=== PATIENT | female | born 1940 | race Caucasian/White ===

== ENCOUNTER 2024-03-13 17:30 | Inpatient (IN) | payer MEDICARE ==
[~2024-03-13] VITALS: Ht 165.1 cm; Wt 57.6 kg
[2024-03-13] MEDS ORDERED: MAG HYDROX/AL HYDROX/SIMETH 30 ML UDC PO PRN (22:00)
[2024-03-13] MEDS ORDERED: MAGNESIUM HYDROXIDE 30 ML UDC PO PRN (22:00)
[2024-03-13] MEDS: BLOOD SUGAR DIAGNOSTIC 1 EACH STRIP MC ONE (22:24)
[2024-03-13] MEDS: ZOLPIDEM TARTRATE 5 MG TABLET PO PRN (22:25)
[2024-03-13 22:37] VITALS: BP 142/80; TEMP 97.7; O2SAT 96
[2024-03-14] MEDS ORDERED: METO25TA4 PO (00:01)
[2024-03-14] MEDS ORDERED: BENA40TA8 PO (00:01)
[2024-03-14] MEDS ORDERED: HYDR50TA4 PO (00:01)
[2024-03-14] MEDS ORDERED: PRAV20TA4 PO (00:01)
[2024-03-14] MEDS: METOPROLOL SUCCINATE 25 MG TAB.SR.24H PO SCH (01:19)
[2024-03-14 07:50] LABS: CHOLESTEROL 162 mg/dL (<200); HDL CHOLESTEROL 57 mg/dL (40-60); LDL 84 mg/dL (0-99); TRIGLYCERIDES 70 mg/dL (30-150)
[2024-03-14 08:00] VITALS: BP 162/78; TEMP 98.7; O2SAT 100
[2024-03-14 08:30] LABS: ALBUMIN 3.4 g/dL (3.4-5.0); BILIRUBIN,TOTAL 0.5 mg/dL (0.2-1.0); CALCIUM, SERUM 8.8 mg/dL (8.5-10.1); CREATININE 1.1 mg/dL (0.6-1.3); POTASSIUM 3.6 mmol/L (3.5-5.1); TOTAL PROTEIN, SERUM 7.1 g/dL (6.4-8.2)
[2024-03-14] MEDS: BENAZEPRIL HCL 20 MG TABLET PO SCH (09:15)
[2024-03-14] MEDS: HYDROCHLOROTHIAZIDE 25 MG TABLET PO SCH (09:16)
[2024-03-14] MEDS: LORAZEPAM 0.5 MG TABLET PO PRN (10:45)
[2024-03-14 11:01] LABS: BASOPHILS % (AUTO) 0.6 % (0.0-2.0); EOSINOPHILS # (AUTO) 0.2 K/uL (0.0-0.7); EOSINOPHILS % (AUTO) 3.2 % (0.0-6.0); HEMATOCRIT 31 % (33-45); HEMOGLOBIN 10.4 g/dL (11.5-14.8); LYMPHOCYTES # (AUTO) 1.1 K/uL (0.8-4.8); LYMPHOCYTES % (AUTO) 16.5 % (20.0-44.0); MEAN CORPUSCULAR HEMOGLOBIN 27 PG (26.0-33.0); MEAN CORPUSCULAR HGB CONC 33 g/dl (31.0-36.0); MEAN CORPUSCULAR VOLUME 81 fL (82-100); MONOCYTES # (AUTO) 0.6 K/uL (0.1-1.30); MONOCYTES % (AUTO) 8.9 % (2.0-12.0); NEUTROPHILS # (AUTO) 4.8 K/uL (1.8-8.9); NEUTROPHILS % (AUTO) 70.8 % (43.0-81.0); PLATELET COUNT (AUTO) 313 K/uL (150-450); RED BLOOD CELL COUNT(AUTO) 3.85 MIL/uL (4.0-5.2); RED CELL DISTRIBUTION WIDTH 15.6 % (11.5-15.0); WHITE BLOOD COUNT (AUTO) 6.8 K/uL (4.3-11.0)
[2024-03-14 11:20] LABS: THYROID STIMULATING HORMONE 1.335 uIU/mL (0.358-3.74)
[2024-03-14] MEDS: DIVALPROEX SODIUM 125 MG CAP.SPRINK PO SCH (12:05)
[2024-03-14 16:00] VITALS: BP 115/44; TEMP 97.9; O2SAT 98
[2024-03-14 20:29] VITALS: BP 154/63; TEMP 97.5; O2SAT 99
[2024-03-14] MEDS: QUETIAPINE FUMARATE 25 MG TABLET PO SCH (21:02)
[2024-03-14] MEDS: ATORVASTATIN 10 MG TABLET PO SCH (21:02)
[2024-03-15 08:00] VITALS: BP 132/57; TEMP 98.6; O2SAT 97
[2024-03-15] MEDS: CYANOCOBALAMIN 500 MCG TABLET PO SCH (08:38)
[2024-03-15] MEDS: ACETAMINOPHEN 325 MG TABLET PO PRN (14:35)
[2024-03-15 16:00] VITALS: BP 114/64; TEMP 98.7; O2SAT 98
[2024-03-15 20:00] VITALS: BP 97/79; TEMP 97.9; O2SAT 98
[2024-03-16 08:00] VITALS: BP 110/80; TEMP 98.6; O2SAT 95
[2024-03-16 16:00] VITALS: BP 113/60; TEMP 98; O2SAT 95
[2024-03-16 20:00] VITALS: BP 124/66; TEMP 98.3; O2SAT 100
[2024-03-16] MEDS: QUETIAPINE FUMARATE 25 MG TABLET PO SCH (21:06)
[2024-03-17 08:00] VITALS: BP 109/61; TEMP 97.6; O2SAT 96
[2024-03-17 10:00] VITALS: BP 109/61
[2024-03-17 16:00] VITALS: BP 139/53; TEMP 98.1; O2SAT 99
[2024-03-17 20:00] VITALS: BP 134/74; TEMP 98.1; O2SAT 100
[2024-03-18] MEDS ORDERED: Z GUARD REMEDY 4 OZ OINT TP PRN (04:00)
[2024-03-18] MEDS: Z GUARD REMEDY 4 OZ OINT TP SCH (08:43)
[2024-03-18 09:56] VITALS: BP 136/55; TEMP 98.4; O2SAT 99
[2024-03-18 17:42] VITALS: BP 121/57; TEMP 97.7
[2024-03-18 20:00] VITALS: BP 139/68; TEMP 97.7; O2SAT 98
[2024-03-19 08:00] VITALS: BP 115/69; TEMP 97.9; O2SAT 95
[2024-03-19 16:00] VITALS: BP 124/56; TEMP 98; O2SAT 99
[2024-03-19 20:52] VITALS: BP 145/69; TEMP 98.3; O2SAT 96
[2024-03-20 07:52] LABS: BASOPHILS % (AUTO) 0.8 % (0.0-2.0); EOSINOPHILS # (AUTO) 0.4 K/uL (0.0-0.7); EOSINOPHILS % (AUTO) 7.2 % (0.0-6.0); HEMATOCRIT 31 % (33-45); LYMPHOCYTES # (AUTO) 1.1 K/uL (0.8-4.8); LYMPHOCYTES % (AUTO) 18.2 % (20.0-44.0); MEAN CORPUSCULAR HEMOGLOBIN 26 PG (26.0-33.0); MEAN CORPUSCULAR HGB CONC 33 g/dl (31.0-36.0); MEAN CORPUSCULAR VOLUME 81 fL (82-100); MONOCYTES # (AUTO) 0.7 K/uL (0.1-1.30); MONOCYTES % (AUTO) 12.2 % (2.0-12.0); NEUTROPHILS # (AUTO) 3.6 K/uL (1.8-8.9); NEUTROPHILS % (AUTO) 61.6 % (43.0-81.0); PLATELET COUNT (AUTO) 283 K/uL (150-450); RED CELL DISTRIBUTION WIDTH 15.6 % (11.5-15.0); WHITE BLOOD COUNT (AUTO) 5.9 K/uL (4.3-11.0)
[2024-03-20 08:00] VITALS: BP 129/64; TEMP 98.6; O2SAT 99
[2024-03-20 08:06] LABS: ALBUMIN 3.1 g/dL (3.4-5.0); BILIRUBIN,TOTAL 0.6 mg/dL (0.2-1.0); CREATININE 1.2 mg/dL (0.6-1.3); POTASSIUM 3.9 mmol/L (3.5-5.1)
[2024-03-20] MEDS: DIVALPROEX SODIUM 125 MG CAP.SPRINK PO SCH (09:02)
[2024-03-20 16:00] VITALS: BP 116/59; TEMP 97.8; O2SAT 98
[2024-03-20 20:50] VITALS: BP 120/66; TEMP 97.8; O2SAT 98
[2024-03-21 08:00] VITALS: BP 114/73; TEMP 97.6; O2SAT 94
[2024-03-21 16:10] VITALS: BP 122/55; TEMP 97.6; O2SAT 93
[2024-03-21 21:04] VITALS: BP 108/72; TEMP 98; O2SAT 98
[2024-03-22 08:00] VITALS: BP 100/55; TEMP 98.6; O2SAT 98
[2024-03-22 10:55] LABS: APPEARANCE,URINE CLEAR (CLEAR); BILIRUBIN,URINE NEGATIVE (NEGATIVE); BLOOD, URINE NEGATIVE Ery/uL (NEGATIVE); COLOR,URINE YELLOW (YELLOW); KETONES,URINE NEGATIVE (NEGATIVE); LEUKOCYTE ESTERASE ,URINE NEGATIVE (NEGATIVE); NITRITE, URINE NEGATIVE (NEGATIVE); PH,URINE 6.5 (5.0-8.0); PROTEIN,URINE NEGATIVE (NEGATIVE); UGLUCOSE NEGATIVE (NEGATIVE)
[2024-03-22 12:08] LABS: ADD URINE CULTURE NO; BACTERIA,URINE Rare /HPF (None Seen); RBC,URINE 0-2 /HPF (0-2); SQUAMOUS EPITHELIAL CELL,UR Few /HPF (None Seen)
[2024-03-22 16:00] VITALS: BP 122/58; TEMP 97.9; O2SAT 100
[2024-03-22 20:00] VITALS: BP 97/58; TEMP 98.4; O2SAT 97
[2024-03-23 08:00] VITALS: BP 100/77; TEMP 97.7; O2SAT 100
[2024-03-23 16:00] VITALS: BP 120/58; TEMP 98.1; O2SAT 96
[2024-03-23 20:00] VITALS: BP 140/61; TEMP 98.3; O2SAT 100
[2024-03-23] MEDS: QUETIAPINE FUMARATE 25 MG TABLET PO SCH (22:02)
[2024-03-24 08:00] VITALS: BP 130/58; TEMP 98.6; O2SAT 97
[2024-03-24 08:56] VITALS: BP 141/65
== END 2024-03-24 13:45 | DRG 885 ==
LOC: GPS 21:04
PROVIDERS: ADMIT Psychiatry & Neurology Psychiatry; ATTEND Student in an Organized Health Care Education/Training Program
DX: F39 Unspecified mood [affective] disorder (principal); F03.92 Unspecified dementia, unspecified severity, with psychotic disturbance; F03.94 Unspecified dementia, unspecified severity, with anxiety; F03.93 Unspecified dementia, unspecified severity, with mood disturbance; F29 Unspecified psychosis not due to a substance or known physiological condition; I10 Essential (primary) hypertension; Z79.899 Other long term (current) drug therapy; D63.8 Anemia in other chronic diseases classified elsewhere; E11.9 Type 2 diabetes mellitus without complications; E78.00 Pure hypercholesterolemia, unspecified; E78.5 Hyperlipidemia, unspecified; F41.9 Anxiety disorder, unspecified; Z90.710 Acquired absence of both cervix and uterus; G89.29 Other chronic pain; Z91.83 Wandering in diseases classified elsewhere; Z73.6 Limitation of activities due to disability
CPT/HCPCS: 36415; 70450-TC; 80053-TC; 80061-TC; 80164-TC; 81001; 82140-TC; 82607-TC; 82962-TC; 83921; 84439-TC; 84443-TC; 85025-TC; 87081-TC

== ENCOUNTER 2024-12-14 21:35 | Inpatient (IN) | payer MEDICARE, OTHER ==
[~2024-12-14] VITALS: Ht 167.6 cm; Wt 61.7 kg
[~2024-12-14 21:35] MED LIST: BENA40TA8 PO; HYDR50TA4 PO; METO25TA4 PO; PRAV20TA4 PO
[2024-12-14 22:57] LABS: BASOPHILS % (AUTO) 0.6 % (0.0-2.0); EOSINOPHILS # (AUTO) 0.3 K/uL (0.0-0.7); EOSINOPHILS % (AUTO) 5.2 % (0.0-6.0); HEMATOCRIT 27 % (33-45); HEMOGLOBIN 8.9 g/dL (11.5-14.8); LYMPHOCYTES # (AUTO) 1.3 K/uL (0.8-4.8); MEAN CORPUSCULAR HEMOGLOBIN 27 PG (26.0-33.0); MEAN CORPUSCULAR HGB CONC 33 g/dl (31.0-36.0); MEAN CORPUSCULAR VOLUME 83 fL (82-100); MONOCYTES # (AUTO) 0.5 K/uL (0.1-1.30); MONOCYTES % (AUTO) 7.6 % (2.0-12.0); NEUTROPHILS # (AUTO) 4.4 K/uL (1.8-8.9); NEUTROPHILS % (AUTO) 66.6 % (43.0-81.0); PLATELET COUNT (AUTO) 299 K/uL (150-450); RED BLOOD CELL COUNT(AUTO) 3.29 MIL/uL (4.0-5.2); RED CELL DISTRIBUTION WIDTH 17.5 % (11.5-15.0); WHITE BLOOD COUNT (AUTO) 6.5 K/uL (4.3-11.0)
[2024-12-14 23:04] LABS: CALCIUM, SERUM 8.4 mg/dL (8.5-10.1); POTASSIUM 4.6 mmol/L (3.5-5.1)
[2024-12-14 23:10] LABS: ALBUMIN 3.6 g/dL (3.4-5.0); BILIRUBIN,DIRECT 0.1 mg/dL (0.0-0.2); BILIRUBIN,TOTAL 0.3 mg/dL (0.2-1.0)
[2024-12-14 23:31] LABS: APPEARANCE,URINE SLIGHTLY CLOUDY (CLEAR); BILIRUBIN,URINE NEGATIVE (NEGATIVE); BLOOD, URINE TRACE-INTA Ery/uL (NEGATIVE); COLOR,URINE YELLOW (YELLOW); KETONES,URINE NEGATIVE (NEGATIVE); LEUKOCYTE ESTERASE ,URINE 2+ (NEGATIVE); NITRITE, URINE NEGATIVE (NEGATIVE); PROTEIN,URINE TRACE mg/dl (NEGATIVE); UGLUCOSE NEGATIVE (NEGATIVE); UROBILINOGEN,URINE 0.2 EU/dL (0.2)
[2024-12-14 23:38] LABS: ADD URINE CULTURE YES; BACTERIA,URINE Moderate /HPF (None Seen); RBC,URINE 0-2 /HPF (0-2); SQUAMOUS EPITHELIAL CELL,UR Few /HPF (None Seen); WBC,URINE 51-80 /HPF (0-3)
[2024-12-14] MEDS: IV NS 0.9% 1,000 ML BAG IV ONE (23:39)
[2024-12-15] MEDS ORDERED: Z GUARD REMEDY 4 OZ OINT TP PRN (02:00)
[2024-12-15] MEDS: METOPROLOL SUCCINATE 25 MG TAB.SR.24H PO SCH (02:00)
[2024-12-15] MEDS ORDERED: ONDANSETRON HCL/PF 4 MG/2 ML VIAL IVP PRN (02:00)
[2024-12-15] MEDS: CEFTRIAXONE 1GM BAG (ER ONLY) 1 GM/50 ML PIGGYBACK IV ONE (02:00)
[2024-12-15] MEDS: NA PHOS,M-B/NA PHOS,DI-BA 1 EA ENEMA RC ONE (02:00)
[2024-12-15] MEDS: ENOXAPARIN SODIUM 30 MG/0.3 ML DISP.SYRIN SQ SCH (02:00)
[2024-12-15] MEDS ORDERED: CEFTRIAXONE 1GM BAG (ER ONLY) 50 ML IV ONE (02:30)
[2024-12-15] MEDS ORDERED: MINERAL OIL 133 ML (PYXIS) 1 EA ENEMA RC ONE (03:07)
[2024-12-15 04:35] VITALS: BP 143/66; TEMP 97.5; O2SAT 96
[2024-12-15 07:23] LABS: BASOPHILS % (AUTO) 0.5 % (0.0-2.0); EOSINOPHILS # (AUTO) 0.4 K/uL (0.0-0.7); EOSINOPHILS % (AUTO) 5.6 % (0.0-6.0); HEMATOCRIT 25 % (33-45); HEMOGLOBIN 8.6 g/dL (11.5-14.8); LYMPHOCYTES # (AUTO) 1.6 K/uL (0.8-4.8); LYMPHOCYTES % (AUTO) 22.2 % (20.0-44.0); MEAN CORPUSCULAR HEMOGLOBIN 28 PG (26.0-33.0); MEAN CORPUSCULAR HGB CONC 34 g/dl (31.0-36.0); MEAN CORPUSCULAR VOLUME 82 fL (82-100); MONOCYTES # (AUTO) 0.7 K/uL (0.1-1.30); MONOCYTES % (AUTO) 9.8 % (2.0-12.0); NEUTROPHILS # (AUTO) 4.5 K/uL (1.8-8.9); NEUTROPHILS % (AUTO) 61.9 % (43.0-81.0); PLATELET COUNT (AUTO) 266 K/uL (150-450); RED BLOOD CELL COUNT(AUTO) 3.09 MIL/uL (4.0-5.2); RED CELL DISTRIBUTION WIDTH 17.2 % (11.5-15.0); WHITE BLOOD COUNT (AUTO) 7.2 K/uL (4.3-11.0)
[2024-12-15 07:52] LABS: CALCIUM, SERUM 8.5 mg/dL (8.5-10.1); CREATININE 1.4 mg/dL (0.6-1.3); PHOSPHORUS 4.3 mg/dL (2.5-4.9); POTASSIUM 4.5 mmol/L (3.5-5.1)
[2024-12-15] MEDS: PANTOPRAZOLE 40 MG TABLET.DR PO SCH (08:21)
[2024-12-15] MEDS: HYDROCHLOROTHIAZIDE 25 MG TABLET PO SCH (08:22)
[2024-12-15] MEDS: BENAZEPRIL HCL 20 MG TABLET PO SCH (08:23)
[2024-12-15 08:41] VITALS: BP 158/66; TEMP 97.7; O2SAT 100
[2024-12-15 16:50] LABS: CREATININE, URINE 13.6 MG/DL (30.0-125.0); URINE SODIUM, RANDOM 48 mmol/l (40-220)
[2024-12-15 16:54] VITALS: BP 158/66; TEMP 97.7; O2SAT 100
[2024-12-15 17:00] VITALS: BP 134/56; TEMP 97.7; O2SAT 98
[2024-12-15 17:17] LABS: URINE TOTAL PROTEIN < 6.0 mg/dL (0-11.9)
[2024-12-15 20:00] VITALS: BP 113/89; TEMP 98.1; O2SAT 94
[2024-12-15] MEDS: ATORVASTATIN 10 MG TABLET PO SCH (21:39)
[2024-12-15] MEDS ORDERED: PRAVASTATIN SODIUM 20 MG TABLET PO SCH (22:00)
[2024-12-16] MEDS: CEFTRIAXONE 1 G in IV D5W 50 ML IV SCH (02:54)
[2024-12-16] MEDS: IV NS 0.9% 1,000 ML IV PRN (04:10)
[2024-12-16 07:44] LABS: ALBUMIN 3.5 g/dL (3.4-5.0); BILIRUBIN,TOTAL 0.4 mg/dL (0.2-1.0); CALCIUM, SERUM 8.5 mg/dL (8.5-10.1); CREATININE 1.4 mg/dL (0.6-1.3); MAGNESIUM 2.1 mg/dL (1.8-2.4); PHOSPHORUS 3.5 mg/dL (2.5-4.9); POTASSIUM 4.2 mmol/L (3.5-5.1); TOTAL PROTEIN, SERUM 6.8 g/dL (6.4-8.2)
[2024-12-16 07:54] LABS: BASOPHILS % (AUTO) 0.5 % (0.0-2.0); EOSINOPHILS # (AUTO) 0.2 K/uL (0.0-0.7); EOSINOPHILS % (AUTO) 3.4 % (0.0-6.0); HEMATOCRIT 25 % (33-45); HEMOGLOBIN 8.3 g/dL (11.5-14.8); LYMPHOCYTES % (AUTO) 28.2 % (20.0-44.0); MEAN CORPUSCULAR HEMOGLOBIN 28 PG (26.0-33.0); MEAN CORPUSCULAR HGB CONC 33 g/dl (31.0-36.0); MEAN CORPUSCULAR VOLUME 83 fL (82-100); MONOCYTES # (AUTO) 0.8 K/uL (0.1-1.30); NEUTROPHILS # (AUTO) 3.9 K/uL (1.8-8.9); NEUTROPHILS % (AUTO) 55.9 % (43.0-81.0); PLATELET COUNT (AUTO) 306 K/uL (150-450); RED CELL DISTRIBUTION WIDTH 17.7 % (11.5-15.0)
[2024-12-16 08:00] VITALS: BP 163/93; TEMP 97.5; O2SAT 96
[2024-12-16] MEDS: AMLODIPINE BESYLATE 5 MG TABLET PO SCH (09:26)
[2024-12-16 16:00] VITALS: BP 127/70; TEMP 97.7; O2SAT 98
[2024-12-16 20:00] VITALS: BP 133/106; TEMP 98.4; O2SAT 98
[2024-12-17 07:20] LABS: BASOPHILS # (AUTO) 0.1 K/uL (0.0-0.2); BASOPHILS % (AUTO) 0.9 % (0.0-2.0); EOSINOPHILS # (AUTO) 0.3 K/uL (0.0-0.7); EOSINOPHILS % (AUTO) 5.5 % (0.0-6.0); HEMATOCRIT 24 % (33-45); HEMOGLOBIN 8.1 g/dL (11.5-14.8); LYMPHOCYTES # (AUTO) 1.8 K/uL (0.8-4.8); LYMPHOCYTES % (AUTO) 32.1 % (20.0-44.0); MEAN CORPUSCULAR HEMOGLOBIN 28 PG (26.0-33.0); MEAN CORPUSCULAR HGB CONC 34 g/dl (31.0-36.0); MEAN CORPUSCULAR VOLUME 82 fL (82-100); MONOCYTES # (AUTO) 0.7 K/uL (0.1-1.30); MONOCYTES % (AUTO) 12.3 % (2.0-12.0); NEUTROPHILS # (AUTO) 2.7 K/uL (1.8-8.9); NEUTROPHILS % (AUTO) 49.2 % (43.0-81.0); PLATELET COUNT (AUTO) 273 K/uL (150-450); RED BLOOD CELL COUNT(AUTO) 2.93 MIL/uL (4.0-5.2); RED CELL DISTRIBUTION WIDTH 17.5 % (11.5-15.0); WHITE BLOOD COUNT (AUTO) 5.6 K/uL (4.3-11.0)
[2024-12-17 07:53] LABS: CALCIUM, SERUM 8.6 mg/dL (8.5-10.1); CREATININE 1.1 mg/dL (0.6-1.3)
[2024-12-17 08:29] VITALS: BP 142/82; TEMP 97.5; O2SAT 98
[2024-12-17 10:10] LABS: PTH, INTACT 36 pg/mL (15-65)
[2024-12-17] MEDS: ACETAMINOPHEN 325 MG TABLET PO PRN (15:21)
[2024-12-17 15:57] VITALS: BP 120/48; TEMP 98.2; O2SAT 95
[2024-12-17] MEDS: QUETIAPINE FUMARATE 25 MG TABLET PO ONE (16:49)
[2024-12-17 21:03] VITALS: BP 130/75; TEMP 98.6; O2SAT 96
[2024-12-18 07:13] LABS: CREATININE 1.3 mg/dL (0.6-1.3); POTASSIUM 3.8 mmol/L (3.5-5.1)
[2024-12-18 07:26] LABS: BASOPHILS % (AUTO) 0.9 % (0.0-2.0); EOSINOPHILS # (AUTO) 0.4 K/uL (0.0-0.7); EOSINOPHILS % (AUTO) 8.7 % (0.0-6.0); HEMATOCRIT 22 % (33-45); HEMOGLOBIN 7.4 g/dL (11.5-14.8); LYMPHOCYTES # (AUTO) 1.6 K/uL (0.8-4.8); LYMPHOCYTES % (AUTO) 32.7 % (20.0-44.0); MEAN CORPUSCULAR HEMOGLOBIN 28 PG (26.0-33.0); MEAN CORPUSCULAR HGB CONC 33 g/dl (31.0-36.0); MEAN CORPUSCULAR VOLUME 83 fL (82-100); MONOCYTES # (AUTO) 0.6 K/uL (0.1-1.30); MONOCYTES % (AUTO) 11.7 % (2.0-12.0); NEUTROPHILS # (AUTO) 2.2 K/uL (1.8-8.9); PLATELET COUNT (AUTO) 248 K/uL (150-450); RED BLOOD CELL COUNT(AUTO) 2.68 MIL/uL (4.0-5.2); RED CELL DISTRIBUTION WIDTH 17.5 % (11.5-15.0); WHITE BLOOD COUNT (AUTO) 4.8 K/uL (4.3-11.0)
[2024-12-18 07:54] VITALS: BP 131/64; TEMP 97.5; O2SAT 98
[2024-12-18 08:13] VITALS: BP 131/64; TEMP 97.5; O2SAT 98
[2024-12-18] MEDS: POLYETHYLENE GLYCOL 3350 17 GM POWD.PACK PO SCH (10:23)
[2024-12-18] MEDS ORDERED: QUETIAPINE FUMARATE 25 MG TABLET PO PRN (11:00)
[2024-12-18 16:00] VITALS: BP 127/53; TEMP 98.1; O2SAT 96
[2024-12-18] MEDS: SOD FERRIC GLUC 125 MG in IV NS 0.9% 100 ML IV SCH (16:07)
[2024-12-18 20:00] VITALS: BP 132/53; TEMP 98.2; O2SAT 98
[2024-12-19 07:01] LABS: BASOPHILS % (AUTO) 0.8 % (0.0-2.0); EOSINOPHILS # (AUTO) 0.4 K/uL (0.0-0.7); EOSINOPHILS % (AUTO) 7.5 % (0.0-6.0); HEMATOCRIT 23 % (33-45); HEMOGLOBIN 7.8 g/dL (11.5-14.8); LYMPHOCYTES # (AUTO) 1.5 K/uL (0.8-4.8); LYMPHOCYTES % (AUTO) 28.7 % (20.0-44.0); MEAN CORPUSCULAR HEMOGLOBIN 28 PG (26.0-33.0); MEAN CORPUSCULAR HGB CONC 33 g/dl (31.0-36.0); MEAN CORPUSCULAR VOLUME 83 fL (82-100); MONOCYTES # (AUTO) 0.6 K/uL (0.1-1.30); MONOCYTES % (AUTO) 11.6 % (2.0-12.0); NEUTROPHILS # (AUTO) 2.6 K/uL (1.8-8.9); NEUTROPHILS % (AUTO) 51.4 % (43.0-81.0); PLATELET COUNT (AUTO) 258 K/uL (150-450); RED BLOOD CELL COUNT(AUTO) 2.83 MIL/uL (4.0-5.2); RED CELL DISTRIBUTION WIDTH 17.8 % (11.5-15.0); WHITE BLOOD COUNT (AUTO) 5.1 K/uL (4.3-11.0)
[2024-12-19 07:19] LABS: CALCIUM, SERUM 8.3 mg/dL (8.5-10.1); CREATININE 1.1 mg/dL (0.6-1.3); POTASSIUM 4.3 mmol/L (3.5-5.1)
[2024-12-19 08:23] VITALS: BP 132/63
[2024-12-19] MEDS ORDERED: ATOR10TA PO (10:04)
[2024-12-19] MEDS ORDERED: POLY17PO29 PO (10:04)
[2024-12-19] MEDS ORDERED: Quetiapine Fumarate PO (10:04)
[2024-12-19] MEDS ORDERED: ACET325T53 PO (10:04)
[2024-12-19] MEDS ORDERED: AMLO-212 PO (10:04)
[2024-12-19] MEDS ORDERED: PANT40TA49 PO (10:04)
[2024-12-19 10:12] LABS: *SPE A/G RATIO 0.9 (0.7-1.7); *SPE ALBUMIN 3.1 g/dL (2.9-4.4); *SPE ALPHA-1-GLOBULIN 0.3 g/dL (0.0-0.4); *SPE ALPHA-2-GLOBULIN 0.8 g/dL (0.4-1.0); *SPE GLOBULIN, TOTAL 3.5 g/dL (2.2-3.9); *SPE M-SPIKE Not Observed g/dL (Not Observed); *SPE PROTEIN TOTAL 6.6 g/dL (6.0-8.5); *SPEGAMMA GLOBULIN 1.3 g/dL (0.4-1.8)
== END 2024-12-19 16:15 | DRG 682 ==
LOC: ER 23:35 → TELE 12-15 03:54 → MED 12-15 06:36
PROVIDERS: ADMIT Nurse Practitioner Family; ATTEND Nurse Practitioner Acute Care
DX: N17.0 Acute kidney failure with tubular necrosis (principal); G93.41 Metabolic encephalopathy; N39.0 Urinary tract infection, site not specified; D68.59 Other primary thrombophilia; F03.94 Unspecified dementia, unspecified severity, with anxiety; E86.0 Dehydration; Z90.710 Acquired absence of both cervix and uterus; M89.8X9 Other specified disorders of bone, unspecified site; K64.4 Residual hemorrhoidal skin tags; I10 Essential (primary) hypertension; E78.5 Hyperlipidemia, unspecified; G89.29 Other chronic pain; Z88.5 Allergy status to narcotic agent; Z79.899 Other long term (current) drug therapy; B96.89 Other specified bacterial agents as the cause of diseases classified elsewhere; K56.41 Fecal impaction; F41.9 Anxiety disorder, unspecified; D63.8 Anemia in other chronic diseases classified elsewhere; Z74.09 Other reduced mobility; R13.10 Dysphagia, unspecified; Z66 Do not resuscitate; Z78.1 Physical restraint status
CPT/HCPCS: 36415; 76770-TC; 80048-TC; 80053-TC; 80076-TC; 81001; 82550-TC; 82570-TC; 83690-TC; 83735-TC; 83970; 84100-TC; 84155; 84165; 84300-TC; 85025-TC; 87081-TC; 87086-TC; 92526; 92611-TC; A4223; G0378; J0696; J1650; J2916; J7030; J7050; J7060